=== PATIENT | male | born 1960 ===

== ENCOUNTER → 2016-10-08 18:40 | Emergency (ER) | payer OTHER ==
[~2016-10-08 18:40] MED LIST: Glucagon* 1 MG VIAL IM ONE
[2016-10-08 20:59] VITALS: BP 150/88
--- NOTE | 2016-10-08 22:43 | ED ---
Cari Gurrola Thomas, scribed for Andrew Markham MD on 10/08/16 at 2039 . Throat Pain/Nasal Congestion - HPI Summary HPI Summary: The pt is a 55 y/o M presenting to the ED c/o a foreign body in his esophagus s/ p eating a chicken sandwich today at 13:00. The patient has previously had a foreign body become lodged in his esophagus. He additionally c/o pain associated with this foreign body. The pt rates the pain 3/10. The pain is aggravated and alleviated by nothing. The patient has treated the pain with nothing [employer]. Pt denies any other complaints at this time. PMHx: HTN. PSHx: upper and lower endoscopies. SHx: no smoking, occasional alcohol use. He is accompanied by his . - History of Current Complaint Chief Complaint: EDForeignBodyEsophag Time Seen by Provider: 10/08/16 20:27 Hx Obtained From: Patient, Family/Director Life [employer] - in room Onset/Duration: Sudden Onset, Lasting Hours - today at 13:00, Still Present Associated Signs And Symptoms: Positive: Negative Cough: None Related History: Other (Noted In Comments) - Prevoius foreign body in esophagus - Allergies/Home Medications Allergies/Adverse Reactions: Allergies Allergy/AdvReac Type Severity Reaction Status Date / Time No Known Allergies Allergy Verified 05/27/12 08:11 PMH/Surg Hx/FS Hx/Imm Hx Previously Healthy: No Cardiovascular History: Reports: Hx Hypertension Respiratory History: Denies: Hx Chronic Obstructive Pulmonary Disease (COPD) - Surgical History Surgery Procedure, Year, and Place: Upper and lower endoscopies Infectious Disease History: Denies: Traveled Outside the [place] in Last 30 Days - Family History Known Family History: Positive: Other - Negative for foreign body lodged in throat - Social History Alcohol Use: Occasionally Substance Use Type: Reports: None Hx Tobacco Use: No Smoking Status (MU): Never Smoked Tobacco Review of Systems Negative: Fever Positive: Other - POS: foreign body in throat with associaed pain (s/p eating a chicken sandwich, 13:00, prior Hx) All Other Systems Reviewed And Are Negative: Yes Physical Exam Triage Information Reviewed: Yes Vital Signs On Initial Exam: Initial Vitals Temp Pulse Resp BP Pulse Ox 98.6 F 62 18 155/85 98 10/08/16 18:43 10/08/16 18:43 10/08/16 18:43 10/08/16 18:43 10/08/16 18:43 Vital Signs Reviewed: Yes Appearance: Positive: Well-Appearing, Pain Distress - mild discomfort Skin: Positive: Warm Head/Face: Positive: Normal Head/Face Inspection ENT: Positive: Pharynx normal Neck: Positive: Supple Respiratory/Lung Sounds: Positive: Clear to Auscultation, Breath Sounds Present Cardiovascular: Positive: RRR Abdomen Description: Positive: Nontender, Soft. Negative: Distended, Guarding Bowel Sounds: Positive: Present Musculoskeletal: Positive: Strength/ROM Intact Neurological: Positive: Normal Gait Psychiatric: Positive: Affect/Mood Appropriate Diagnostics - Vital Signs Vital Signs Temp Pulse Resp BP Pulse Ox 10/08/16 18:43 98.6 F 62 18 155/85 98 - Laboratory Lab Statement: Any lab studies that have been ordered have been reviewed, and results considered in the medical decision making process. EENT Course/Dx - Course Assessment/Plan: The pt is a 55 y/o M presenting to the ED c/o a foreign body in his esophagus s/p eating a chicken sandwich today at 13:00. The patient has previously had a foreign body become lodged in his esophagus. He additionally c/ o pain associated with this foreign body. The pt rates the pain 3/10. The pain is aggravated and alleviated by nothing. The patient has treated the pain with nothing [employer]. Pt denies any other complaints at this time. PMHx: HTN. PSHx: upper and lower endoscopies. SHx: no smoking, occasional alcohol use. He is accompanied by his . In the ED course the patient was given Glucagon. There is no GI coverage at [facility] at this time, so the patient was intended to be transferred to [facility] for GI coverage. Patient and refuse this plan and will sign out AMA. Pt walkes out [facility] ed without signing form. Risj=ks were explained to the pt and - Diagnoses Provider Diagnoses: Esophageal foreign body Discharge - Discharge Plan Condition: Fair Disposition: OTHER Discharge Disposition Comment: Left AMA Referrals: Tom Dawson MD [Primary Care Provider] - The documentation as recorded by the Cari ramos Thomas accurately reflects the service I personally performed and the decisions made by me, Andrew Markham MD.
== END ==
LOC: ED 18:40
DX: S10.15XA Superficial foreign body of throat, initial encounter (principal); T17.920A Food in respiratory tract, part unspecified causing asphyxiation, initial encounter; X58.XXXA Exposure to other specified factors, initial encounter; Y93.89 Activity, other specified; Y92.89 Other specified places as the place of occurrence of the external cause
CPT/HCPCS: 99282; J1610